=== PATIENT | female | born 1985 | race Two or more races ===

== ENCOUNTER 2024-09-14 15:12 | Outpatient (REF) | payer OTHER, SELFPAY ==
--- NOTE | ~2024-09-14 | US_ITS ---
EXAMINATION: US TRIPLEX LOWER EXTREMITY, LEFT CLINICAL INFORMATION: Edema and pain COMPARISON: None available. TECHNIQUE: Color-flow triplex imaging with spectral analysis and compression Doppler were performed on the left lower extremity. FINDINGS: Respiratory variation, normal compression and augmented flow are noted throughout the left lower extremity. The visualized common femoral vein, superficial femoral vein, profunda femoral vein, popliteal vein and midcalf peroneal and posterior tibial venous segments show no evidence of deep venous thrombosis. Incidental finding of a left groin lymph node measuring 1.9 cm normal echogenic medullary. There is no Sheridan's cyst. Imaging over the left anterior thyroid patient complains of pain reveals no focal mass, lesion or fluid collection. US/US venous duplex LE IMPRESSION: No evidence of deep venous thrombosis involving the left lower extremity. Electronically signed by: Good Lujan MD 09/14/2024 04:34 PM PORTER
--- NOTE | ~2024-09-14 | US_ITS ---
EXAMINATION: US TRIPLEX UPPER EXTREMITY, LEFT CLINICAL INFORMATION: Pain and swelling COMPARISON: None available. TECHNIQUE: Color-flow triplex imaging with spectral analysis and compression Doppler was performed on the left upper extremity. FINDINGS: The left internal jugular, subclavian, and axillary veins are patent and free of thrombus. The imaged segment of the left brachiocephalic vein is patent. Spectral doppler waveforms are normal. The brachial, basilic, cephalic, radial, and ulnar veins are patent and compressible. US/US venous duplex UE LT IMPRESSION: No evidence of deep venous thrombosis involving the left upper extremity. Electronically signed by: Good Lujan MD 09/14/2024 04:34 PM EST
--- OUTSIDE RECORDS SUMMARY | 2024-09-14 18:46 | XMS_ITS ---
Author Organization [facility] Address [address] [place] [address] Care Team Providers Care Ore Mixer Name Role Phone STEFANIE NAZARIO M.D. Primary Care Provider Unavail able Aniyah Loo Unavailable [phone] Allergies Allergen (clinical drug ingredient) Drug/Non Drug Allergy documented on EMR Reaction Allergy Type Onset Date Status CECLOR Skin Rash Drug Allergy Active amoxicillin / clavulanate AUGMENTIN Skin Rash Drug Allergy Active Adhesive Skin Rash Allergy Active Substance with sulfonamide structure and antibacterial mechanism of action (substance) Sulfa Antibiotics Skin Rash Drug Allergy Active Results Component Value Reference Range Notes Urinalysis Reviewed date:10/01/2023 12:34:55 PM Interpretation: Performing Lab: Notes/Report: PH 5.0 PROTEIN Small GLUCOSE Neg BLOOD Neg 200725-Ebc IGP, CtNg Culture 30 Plus Reviewed date:10/07/2023 12:38:54 PM Interpretation: Performing Lab:[facility], [address], Phone - [phone], Director - [facility] Notes/Report: Clinical Information:SRC: CERVICAL Vaginal/Cervical, LMP: Non e with IUD Source.............Cervix Dates / Results....07/23/22 NIL, + HPV Other..............IUD No. of containers..01 ThinPrep Vial DIAGNOSIS: NEGATIVE FOR INTRAEPITHELIAL LESION OR MALIGNANCY. THIS SPECIMEN WAS RESCREENED PART OF OUR FLYING INSTRUCTOR PROGRAM. THE CYTOLOGY PROCESSING [facility]FOR[facility] AT [facility] LOC[facility] [place] [address] [place] [phone]. Specimen adequacy: Satisfactory for evaluation. Endocervical and/or squamous metaplastic cells (endocervical component) are present. Clinician provided ICD10: Z01.419 Z72.51 Performed by: Christal danielson, Fabrication Manager (ASC) QC reviewed by: Aruna danielson, Fabrication Manager (ASC) . . Note: The Pap smear is a screening test designed to aid in the detection of premalignant and malignant conditions of the uterine cervix. It is not a diagnostic procedure and should not be used as the sole means of detecting cervical cancer. Both false-positive and false-negative reports do occur. . Test Methodology: This liquid based ThinPrep(R) pap test was screened with the use of an image guided system. HPV Aptima Negative Negative This nucleic acid amplification test detects fourteen high-risk HPV types (16,18,31,33,35,39,45,51,52,56,58 ,59,66,68) without differentiation. HPV Genotype Reflex Criteria not met, HPV Genotype not performed. Chlamydia, Nuc. Acid Amp Negative Negative Gonococcus, Nuc. Acid Amp Negative Negative PDF Report Reviewed date:10/07/2023 12:39:06 PM Interpretation: Performing Lab:[facility], [address], Phone - [phone], Director - [facility] Notes/Report: Clinical Information:SRC: CERVICAL Vaginal/Cervical, LMP: Non e with IUD Source.............Cervix Dates / Results....07/23/22 NIL, + HPV Other..............IUD No. of containers..01 ThinPrep Vial REASON FOR VISIT Annual PLANT PATHOLOGY TEACHER Physical, Annual PLANT PATHOLOGY TEACHER Physical -* Medications Medication SIG (Take, Route, Frequency, Duration) Notes Start Date End Date Status Multi-Vitamin - 1 tablet Orally Once a day for 30 day(s) Active Calcium-D Active DULoxetine HCl 60 MG TK 1 C PO ONCE D IN ADDITION TO 30MG CAPSULE Oral for 30 Active Omeprazole 20 MG TK 2 CS PO BID Oral for 30 Active Magnesium 200 MG 2 tablets with a mike l Orally Once a day for 30 day(s) Active hydrOXYzine HCl 50 MG 1 tablet at bedtim e as needed Orally Once a day for 30 day(s) unknown dose Active Prazosin HCl 2 MG 1 capsule at bedtime Orally Once a day for 30 day(s) Active traZODone HCl 100 MG 1 tablet at bedtime Orally Once a day for 30 day(s) Active Collagen Ultra - as directed Orally Active Probiotic - as directed Orally Active Mirena (52 MG) 20 MCG/DAY I implant Intrauterine Once every 5 years for 999 days 1,825 days for Mirena but our system will omly allow up to 999 days. Please mail the IUD to [facility], [address], [place] [address]. Do not mail to patient. 07/30/2022 Active Hair Skin and Nails Formula - as directed Orally Active Aldara 5 % 1 application to affected area at bedtime Externally APPLY TO AFFECTED AREA THRICE A WEEK, NOT TO EXCEED 16 WEEKS for 30 days 10/01/2023 Active Social History Tobacco Use: Social History Observation Description Date Details (start date - stop date) Current Smoker NA - NA Tobacco Use/Smoking Question Answer Notes Are you a current smoker How often do you smoke cigarettes? every day How many cigarettes a day do you smoke? 5 or les s Alcohol Screen (Audit-C) Question Answer Notes Did you have a drink contain ing alcohol in the past year? Yes How often did you have a dri nk containing alcohol in the past year? 2 to 4 times a month (2 points) How many drinks did you have on a typical day when you were drinking in the past year? 1 or 2 drinks (0 point) Points 2 Interpretation Negative Sexual History Question Answer Notes Had sex in the past 12 months (vaginal, oral, or anal)? Yes with Men only Problems Problem Type SNOMED Code ICD Code Onset Dates Problem Status W/U Status Risk Notes Problem Anogenital warts (014976285) Anogenital (venereal) warts (A63.0) Active confirmed Vital Signs Temperature 97.7 degrees Fahrenheit 10/01/19 24 Blood pressure systolic 110 mm Hg 10/01/19 24 Blood pressure diastolic 70 mm Hg 024 Height 68 in 10/01/2023 Weight 167 lbs 10/01/2023 BMI 25.39 kg/m2 10/01/2023 Encounters Encounter Location Date Provider Diagnosis [place] [address] [address] [facility] [address] [place] [address] 10/01/2023 Aniyah Loo Encounter for gynecological examination (general) (routine) without abnormal findings Z01.419 ; High risk heterosexual behavior Z72.51 ; Encounter for routine checking of intrauterine contraceptive device Z30.431 ; Anogenital (venereal) warts A63.0 ; Personal history of other diseases of the female genital tract Z87.42 and Cervical high risk human papillomavirus (HPV) DNA test positive R87.810 Assessments Encounter Date Diagnosis (ICD Code) Assessment Notes Treatment Notes Treatment Clinical Notes Section Notes 10/01/2023 Encounter for gynecological examination (general) (routine) without abnormal findings (ICD-10 - Z01.419) PAP TEST WITH HPV TYPING WAS OBTAINED. 10/01/2023 High risk heterosexual behavior (ICD-10 - Z72.51) GC & CHLAMYDIA TESTS WITH PAP SMEAR. 10/01/2023 Encounter for routine checking of intrauterine contraceptive device (ICD-10 - Z30.431) PAT WAS REASSURED THAT IUD IS IN PLACE. THIS WILL NEED TO BE REPLACED IN 2029. 10/01/2023 Anogenital (venereal) warts (ICD-10 - A63.0) DISCUSSED FINDINGS, DX AND TX OPTIONS. SHOWED PAT WARTS USING A HAND MIRROR. SHE REFUSED TCA TREATMENTS. WILL TRY ALDARA. DETAILED INSTRUCTIONS WERE GIVEN. CALL IF NOT EFFECTIVE. 10/01/2023 Personal history of other diseases of the female genital tract (ICD-10 - Z87.42) DISCUSSED PREVIOUS HX OF ABNORMAL PAP TESTS. REPEAT PAP TEST WITH HPV TYPING WAS OBTAINED TODAY. IF ABNORMAL, WILL PROCEED WITH COLPOSCOPY. 10/01/2023 Cervical high risk human papillomavirus (HPV) DNA test positive (ICD-10 - R87.810) DISCUSSED HIGH RISK HPV AND ITS SIGNIFICANCE. PAP TEST WITH HPV TYPING WAS OBTAINED. Plan Of Treatment Medication Medication Name Sig Start Date Stop Date Notes Aldara 5 % 1 application to aff ected area at bedtime Externally APPLY TO AFFECTED AREA THRICE A WEEK, NOT TO EXCEED 16 WEEKS for 30 days 10/01/2023 Treatment Notes Assessment Notes Encounter for gynecological examination (general) (routine) without abnormal findings PAP TEST WITH HPV TYPING WAS OBTAINED. High risk heterosexual behavior GC & CHL AMYDIA TESTS WITH PAP SMEAR. Encounter for routine checki ng of intrauterine contraceptive device PAT WAS REASSURED THAT IUD IS IN PLACE. THIS WILL NEED TO BE REPLACED IN 2030. Anogenital (venereal) warts DISCUSSED FINDINGS, DX AND TX OPTIONS. SHOWED PAT WARTS USING A HAND MIRROR. SHE REFUSED TCA TREATMENTS. WILL TRY ALDARA. DETAILED INSTRUCTIONS WERE GIVEN. CALL IF NOT EFFECTIVE. Personal history of other di seases of the female genital tract DISCUSSED PREVIOUS HX OF ABNORMAL PAP TESTS. REPEAT PAP TEST WITH HPV TYPING WAS OBTAINED TODAY. IF ABNORMAL, WILL PROCEED WITH COLPOSCOPY. Cervical high risk human pap illomavirus (HPV) DNA test positive DISCUSSED HIGH RISK HPV AND ITS SIGNIFICANCE. PAP TEST WITH HPV TYPING WAS OBTAINED. Next Appt Details Follow Up: 1 Year, Reason: Provider Name:Aniyah steinberg, 10/04/2024 10:20:00 AM, [address], [address], [place], [address], Progress Notes * NICCI TRANDOB:1985 (37 yo F)Acc No.[id number]:10/01/2023 PROGRESS NOTES Patient:?TRANNICCI Appointment Provider:?Aniyah steinberg M.D. :1985???Age:37 Y???Sex:Female D ate:10/01/2023 Address:[address] [place] [address] Pcp:STEFANIE NAZARIO M.D. Subjective: * Chief Complaints: * ???Annual PLANT PATHOLOGY TEACHER PhysicalAnnual PLANT PATHOLOGY TEACHER Physical 30-39* * HPI: ???New/Follow-up Patient Consult:? FOURTH MIRENA IUD WAS INSERTED ON 08/06/22. SHE IS HAPPY WITH THE IUD. ?S/P GASTRIC BYPASS SURGERY WHEN SHE WAS 22 YEARS OLD. SHE LOST A SIGNIFICANT AMOUNT OF WEIGHT AND HAS KEPT THIS OFF. SHE HAS UNDERGONE ABDOMINOPLASTY AND REMOVAL OF EXCESS SKIN ALONG BOTH UPPER EXTREMITIES. SHE HAS SUFFERED PERFORATION OF STOMACH TWICE, 7 AND 5 YEARS AGO. SHE CONTINUES TO BE FOLLOWED BY HER SURGEON. ?SHE HAS NOTED WARTS ALONG THE VULVA OF SEVERAL MONTHS DURATION. SHE WANTS THESE EXCISED. ?SHE HAS BEEN WITH A NEW PARTNER FOR A FEW YEARS. HE HAS NOT REPORTED NOTING ANY WARTS. ?HER PAP TEST IN 2013 SHOWED ASC-H. COLPOSCOPY WAS NEGATIVE. PAP TEST IN 2016 SHOWED ASCUS, +HPV AND COLPOSCOPY WAS AGAIN NEGATIVE. HER LAST PAP TEST IN 2022 WAS NEGATIVE BUT HR HPV POSITIVE (NEG16,18/45). WE WILL REPEAT HER PAP TEST TODAY. ???Annual:? Patient presents for annual exam ages 30-39. ?Menstrual History:?Regularity of Cycles:?regular ?Currently using control:?__ ?Satisfaction/Dissatisfaction of current method of control:?__ ?General Health Maintenance:?Current breast complaints:?no breast pain, mass, discharge, or skin changes ?Urinary problems:?patient reports no urinary health problems or bowel health problems ?Calcium intake:?takes adequate calcium via 3-4 servings of dairy daily ?Significant PLANT PATHOLOGY TEACHER problems:?no significant obstetrician and gynaecologist symptoms or problems * ROS:?general:?no?chest pain.?no?palpitations.?no?headache.?no?cough.?no?shortness of breath.?no?fever.?no?unexplained weight loss.?no?nausea/vomiting.?no?change in bowel movements.?no blood in stool.?no?genitourinary complaints.?no?skin complaints.? * Medical History:? 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 * OB History:?Total pregnancies?3.?Total living children?2.?NVD?2.?(s)?1.? * Surgical History:?Colposcopy Gastric Bypass Hemorrhoidectomy Back Surgery, Sonny Placed For Lumbar Fusion Stomach Surgery - Perforated Hole in Stomach 01/2018 * Hospitalization/Major Diagno stic Procedure:?2 Vaginal Deliveries See Surgical Hx * Family History:?Mother: aliv e, well.?Father: alive, well.? Sibling(s): 2 brother(s) 2 sister(s) Alive & Well. 2 brothers ADHD. * Social History:?Tobacco Use:?Tobacco Use/Smoking?Are you a?current smoker ?How often do you smoke cigarettes??every day ?How many cigarettes a day do you smoke??5 or less ???Sexual History:?Sexual History?Had sex in the past 12 months (vaginal, oral, or anal)??Yes ?with?Men only ?Details of Sexual History?Are you sexually active??Yes ???Drugs/Alcohol:?Drugs?Have you used drugs other than those for medical reasons in the past 12 months??No ?Alcohol Screen (Audit-C)?Did you have a drink containing alcohol in the past year??Yes ?How often did you have a drink containing alcohol in the past year??2 to 4 times a month (2 points) ?How many drinks did you have on a typical day when you were drinking in the past year??1 or 2 drinks (0 point) ?Points?2 ?Interpretation?Negative ???Miscellaneous:?Children: yes, 2. ?no Domestic violence. ?Exercise: yes, Cardio. ?Home smoke detector use: yes. ?Living with: significant other. ?Marital status: single. ?Natural support system: yes. 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 ?Sexually active: yes. * Medications:?TakingProbiotic - Tablet Delayed Release as directed Orally Collagen Ultra - Capsule as directed Orally Prazosin HCl 2 MG Capsule 1 capsule at bedtime Orally Once a dayhydrOXYzine HCl 50 MG Tablet 1 tablet at bedtime as needed Orally Once a day, Notes: unknown dosetraZODone HCl 100 MG Tablet 1 tablet at bedtime Orally Once a dayMagnesium 200 MG Tablet 2 tablets with a meal Orally Once a dayCalcium-D Multi-Vitamin - Tablet 1 tablet Orally Once a dayOmeprazole 20 MG Capsule Delayed Release TK 2 CS PO BID Oral DULoxetine HCl 60 MG Capsule Delayed Release Particles TK 1 C PO ONCE D IN ADDITION TO 30MG CAPSULE Oral Hair Skin and Nails Formula - Tablet as directed Orally Mirena (52 MG) 20 MCG/DAY Intrauterine Device I implant Intrauterine Once every 5 years, Notes: 1,825 days for Mirena but our system will omly allow up to 999 days. Please mail the IUD to [facility], [address] [place] [phone]. Do not mail to patient.Medication List reviewed and reconciled with the patientTaking Probiotic - Tablet Delayed Release as directed Orally Taking Collagen Ultra - Capsule as directed Orally Taking Prazosin HCl 2 MG Capsule 1 capsule at bedtime Orally Once a dayTaking hydrOXYzine HCl 50 MG Tablet 1 tablet at bedtime as needed Orally Once a day, Notes: unknown doseTaking traZODone HCl 100 MG Tablet 1 tablet at bedtime Orally Once a dayTaking Magnesium 200 MG Tablet 2 tablets with a meal Orally Once a dayTaking Calcium-D Taking Multi-Vitamin - Tablet 1 tablet Orally Once a dayTaking Omeprazole 20 MG Capsule Delayed Release TK 2 CS PO BID Oral Taking DULoxetine HCl 60 MG Capsule Delayed Release Particles TK 1 C PO ONCE D IN ADDITION TO 30MG CAPSULE Oral Taking Hair Skin and Nails Formula - Tablet as directed Orally Taking Mirena (52 MG) 20 MCG/DAY Intrauterine Device I implant Intrauterine Once every 5 years, Notes: 1,825 days for Mirena but our system will omly allow up to 999 days. Please mail the IUD to [facility], [address], [place] [address]. Do not mail to patient.Medication List reviewed and reconciled with the patient * Allergies:?CECLOR: Skin Rash - AllergyAUGMENTIN: Skin Rash - AllergySulfa Antibiotics: Skin Rash - AllergyAdhesive: Skin Rash - Allergyno[Allergies Verified] Objective: * Vitals:?Ht: 68 in, Wt:167 lb s, BMI:25.39 Index, BP:110/70 mm Hg, Temp:97.7 F. * Examination: ???General Exam: ?CONSTITUTIONAL:?General Appearance:?alert, in no acute distress, normal, well nourished ?NECK/THYROID:?Inspection/Palpation:?normal ?Thyroid:?normal size and shape ?RESPIRATORY:?Auscultation: clear to auscultation bilaterally, Respiratory Effort: normal.?CARDIOVASCULAR:?Auscultation: regular rate and rhythm.?BREAST, Right:?Inspection/Palpation:?no discharge, no masses present, no nipple retraction, no skin changes, no skin dimpling, no tenderness, no lymphadenopathy, no axillary mass, no axillary tenderness ?BREAST, Left:?Inspection/Palpation:?no discharge, no masses present, no nipple retraction, no skin changes, no skin dimpling, no tenderness, no lymphadenopathy, no axillary mass, no axillary tenderness ?GASTROINTESTINAL:?Abdomen:?no masses, nontender, nondistended ?Liver and Spleen:?normal ?Hernias:?no hernias present, no inguinal adenopathy ?MUSCULOSKELETAL:?Inspection/Palpation:?no clubbing, cyanosis, or edema ?SKIN:?Skin:?normal ?NEURO/PSYCH:?Orientation:?time , place, person ?Mood/Affect:?normal?Genitourinary: ?EXTERNAL GENITALIA:?External Genitalia:?WARTS ARE NOTED ALONG THE VULVA ?VAGINA:?Vagina:?normal appearance, no abnormal discharge, no lesions ?BLADDER:?Bladder:?no mass, nontender ?URETHRA:?Urethra:?no erythema or lesions present ?CERVIX:?Cervix:?no lesions, nontender ?UTERUS:?Uterus:?nontender, normal contour, normal mobility, normal size ?ADNEXA:?Adnexa:?no masses, no tenderness ?ANUS AND PERINEUM:?Anus/Perineum:?visually normal??? Assessment: * Assessment: 1.?Encounter for gynecologic al examination (general) (routine) without abnormal findings - Z01.419?2.?High risk heterosexual behavior - Z72.51?3.?Encounter for routine checking of intrauterine contraceptive device - Z30.431?4.?Anogenital (venereal) warts - A63.0?5.?Personal history of other diseases of the female genital tract - Z87.42?6.?Cervical high risk human papillomavirus (HPV) DNA test positive - R87.810? Plan: * Treatment: ? Value Reference Range ?PH 5.0 * ?PROTEIN Small * ?GLUCOSE Neg * ?BLOOD Neg * D.MILLI 10/01/2023 11:01:09 AM > Notes: PAP TEST WITH HPV TYPING WAS OBTAINED.??2.?High risk heterosexual behavior? Notes: GC & CHLAMYDIA TESTS WITH PAP SMEAR.??3.?Encounter for routine checking of intrauterine contraceptive device? Notes: PAT WAS REASSURED THAT IUD IS IN PLACE. THIS WILL NEED TO BE REPLACED IN 2029.??4.?Anogenital (venereal) warts? Start Aldara Cream, 5 %, 1 application to affected area at bedtime, Externally, APPLY TO AFFECTED AREA THRICE A WEEK, NOT TO EXCEED 16 WEEKS, 30 days, 12 Packet, Refills 3.?? Notes: DISCUSSED FINDINGS, DX AND TX OPTIONS. SHOWED FLORENTIN WARTS USING A HAND MIRROR. SHE REFUSED TCA TREATMENTS. WILL TRY ALDARA. DETAILED INSTRUCTIONS WERE GIVEN. CALL IF NOT EFFECTIVE.??5.?Personal history of other diseases of the female genital tract? Notes: DISCUSSED PREVIOUS HX OF ABNORMAL PAP TESTS. REPEAT PAP TEST WITH HPV TYPING WAS OBTAINED TODAY. IF ABNORMAL, WILL PROCEED WITH COLPOSCOPY.??6.?Cervical high risk human papillomavirus (HPV) DNA test positive? Notes: DISCUSSED HIGH RISK HPV AND ITS SIGNIFICANCE. PAP TEST WITH HPV TYPING WAS OBTAINED.?? * Procedure Codes:? * Preventive Medicine:? ??YOUR PREVENTIVE WELLNESS PLAN:?Osteoporosis prevention?Calcium, D, strength training.?Cervical Cancer Screening (Pap Smear):?q 3 years with HPV screen.? ??Counseling:?Breast awareness?.?Breast self exam after periods:?.?Diet/Vitamins discussed including high doses of Vitamins A, C, E and Zinc:?.?Exercise:?.?Seatbelts:?.?Sunscreen:?.?Patient was counseled regarding the above. * Follow Up:?1 Year * Images: Billing Information: * Visit Code:? * Procedure Codes:? * Sign off status: Completed true * Appointment Provider:?Aniyah Loo M.D. Date:?10/01/2023 Generated for Ganga dorman/Blaire/Carmenitting on:?09/14/2024 06:46 PM EST History and Physical Notes * HPI (History of Present Illness) Category Sub-Category Detail Notes Category Not es New/Follow-up Patient Consult FOURTH MIRENA IUD WAS INSERTED ON 08/06/22. SHE IS HAPPY WITH THE IUD. S/P GASTRIC BYPASS SURGERY WHEN SHE WAS 22 YEARS OLD. SHE LOST A SIGNIFICANT AMOUNT OF WEIGHT AND HAS KEPT THIS OFF. SHE HAS UNDERGONE ABDOMINOPLASTY AND REMOVAL OF EXCESS SKIN ALONG BOTH UPPER EXTREMITIES. SHE HAS SUFFERED PERFORATION OF STOMACH TWICE, 7 AND 5 YEARS AGO. SHE CONTINUES TO BE FOLLOWED BY HER SURGEON. SHE HAS NOTED WARTS ALONG THE VULVA OF SEVERAL MONTHS DURATION. SHE WANTS THESE EXCISED. SHE HAS BEEN WITH A NEW PARTNER FOR A FEW YEARS. HE HAS NOT REPORTED NOTING ANY WARTS. HER PAP TEST IN 2013 SHOWED ASC-H. COLPOSCOPY WAS NEGATIVE. PAP TEST IN 2016 SHOWED ASCUS, +HPV AND COLPOSCOPY WAS AGAIN NEGATIVE. HER LAST PAP TEST IN 2022 WAS NEGATIVE BUT HR HPV POSITIVE (NEG16,18/45). WE WILL REPEAT HER PAP TEST TODAY. Annual Menstrual History: Regularity of Cycles:: regular Currently using control:: __ Satisfaction/Dissatisfaction of current method of control:: __ General Health Maintenance: Current epifanio st complaints:: no breast pain, mass, discharge, or skin changes Urinary problems:: patient r eports no urinary health problems or bowel health problems Calcium intake:: takes adequ ate calcium via 3-4 servings of dairy daily Significant PLANT PATHOLOGY TEACHER problems:: n o significant obstetrician and gynaecologist symptoms or problems Examination Category Sub-Category Detail Notes Category Not es General Exam CONSTITUTIONAL: General Appearan ce:: alert, in no acute distress, normal, well nourished NECK/THYROID: Thyroid:: normal size and shape Inspection/Palpation:: normal RESPIRATORY: Auscultation: clear to auscultation bilaterally, Respiratory Effort: normal CARDIOVASCULAR: Auscultation: regula r rate and rhythm GASTROINTESTINAL: Hernias:: no hernias present, no inguinal adenopathy Liver and Spleen:: normal Abdomen:: no masses, nontender, nondiste nded MUSCULOSKELETAL: Inspection/Palpation:: no clubb ing, cyanosis, or edema SKIN: Skin:: normal NEURO/PSYCH: Mood/Affect:: normal Orientation:: time , place, person BREAST, Right: Inspection/Palpation :: no discharge, no masses present, no nipple retraction, no skin changes, no skin dimpling, no tenderness, no lymphadenopathy, no axillary mass, no axillary tenderness BREAST, Left: Inspection/Palpation :: no discharge, no masses present, no nipple retraction, no skin changes, no skin dimpling, no tenderness, no lymphadenopathy, no axillary mass, no axillary tenderness Genitourinary EXTERNAL GENITALIA: External Genitalia:: WARTS ARE NOTED ALONG THE VULVA VAGINA: Vagina:: normal appearance, no a bnormal discharge, no lesions BLADDER: Bladder:: no mass, nontender URETHRA: Urethra:: no erythema or lesions present CERVIX: Cervix:: no lesions, nontender UTERUS: Uterus:: nontender, normal conto ur, normal mobility, normal size ADNEXA: Adnexa:: no masses, no tendernes s ANUS AND PERINEUM: Anus/Perineum:: visually norm al
--- OUTSIDE RECORDS SUMMARY | 2024-09-14 18:46 | XMS_ITS ---
Author Organization [facility] ([email or web address]) [facility] Address [address] [place] [id number] Care Team Providers Care Memory Care Director Name Role Phone MANSI Mayers, STEFANIE Primary Care Provider Aniyah Tenorio Unavailable [phone] Allergies Allergen (clinical drug ingredient) Drug/Non Drug Allergy documented on EMR Reaction Allergy Type Onset Date Status CECLOR Skin Rash Drug Allergy Active amoxicillin / clavulanate AUGMENTIN Skin Rash Drug Allergy Active Adhesive Skin Rash Allergy Active Substance with sulfonamide structure and antibacterial mechanism of action (substance) Sulfa Antibiotics Skin Rash Drug Allergy Active REASON FOR VISIT 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 [address] [address] 07/26/2023 Aniyah Loo Plan Of Treatment Next Appt Details Provider Name:Aniyah steinberg, 10/04/2024 10:20:00 AM, [address] [place] [address], [place], [address], Progress Notes * NICCI TRANDOB:1985 (38 yo F)Acc No.[id number]:07/26/2023 PROGRESS NOTES Patient:?NICCI TRAN Appointment Provider:?Aniyah steinberg M.D. :1985???Age:37 Y???Sex:Female D ate:07/26/2023 Address:[address] [place], [place] [id number] Pcp:STEFANIE NAZARIO M.D. Subjective: * Chief Complaints: * ???1. 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 * Medical History:?Gastro-esop hageal reflux disease without esophagitis, Major depressive disorder, single episode, unspecified, Other herpesviral infection, Cervical high risk human papillomavirus (HPV) DNA test positive, Atypical squamous cells of undetermined significance on cytologic smear of cervix (ASC-US), Irregular menstruation, unspecified. 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 * OB History:?Total pregnancies?3.?Total living children?2.?NVD?2.?(s)?1.? * Allergies:?CECLOR: Skin Rash - Allergy, AUGMENTIN: Skin Rash - Allergy, Sulfa Antibiotics: Skin Rash - Allergy, Adhesive: Skin Rash - Allergy. Objective: * Vitals:? Assessment: Plan: * Treatment: * Images: Billing Information: * Visit Code:? * Procedure Codes:? * Electronic signature of Chai Loo MD on 09/14/2024 at 06:46 PM EST Sign off status: Pending * Appointment Provider:?Aniyah Loo M.D. Date:?07/26/2023 Generated for Ganga dorman/Blaire/eTallysmitting on:?09/14/2024 06:46 PM EST
--- OUTSIDE RECORDS SUMMARY | 2024-09-14 18:47 | XMS_ITS | Patient Health Record ---
Author Organization [facility] Address [address] [facility] [address] [place] [address] Care Team Providers Care Program Support Assistant Name Role Phone STEFANIE NAZARIO M.D. Primary Care Provider Unavail able Aniyah Loo Unavailable [phone] Allergies Allergen (clinical drug ingredient) Drug/Non Drug [...] 5.0 PROTEIN Small GLUCOSE Neg BLOOD Neg [id number] IGP, CtNg Culture 30 Plus Reviewed date:10/07/2023 12:38:54 PM Interpretation: Performing Lab[facility], [address] [place] [address], Phone - [phone], Director - [facility] Notes/Report: Clinical Information:SRC: CERVICAL Vaginal/Cervical, LMP: Non e with IUD Source.............Cervix Dates / Results....07/23/22 NIL, + HPV Other..............IUD No. of containers..01 ThinPrep Vial DIAGNOSIS: NEGATIVE FOR INTRAEPITHELIAL LESION OR MALIGNANCY. THIS SPECIMEN WAS RESCREENED PART OF OUR CARPENTER MAINTENANCE PROGRAM. THE CYTOLOGY PROCESSING [facility] LOC[facility] AT [address] [place] [phone]. Specimen adequacy: Satisfactory for evaluation. Endocervical and/or squamous metaplastic cells (endocervical component) are present. Clinician provided ICD10: Z01.419 Z72.51 Performed by: Christal danielson, Stove Mechanic (ASCP) QC reviewed by: Aruna danielson, Stove Mechanic (ASC) . . Note: The Pap smear [...] Reviewed date:10/07/2023 12:39:06 PM Interpretation: Performing Lab:[facility], [address], Phone - [phone], Director - [facility] Notes/Report: Clinical Information:SRC: CERVICAL Vaginal/Cervical, LMP: Non e with IUD Source.............Cervix Dates / Results....07/23/22 NIL, + HPV Other..............IUD No. of containers..01 ThinPrep Vial Reason For Referral No Information Medications Medication SIG (Take, Route, Frequency, Duration) Notes Start Date End Date Status Mirena (52 MG) 20 MCG/DAY I implant Intrauterine Once every 5 years for 999 days 1,825 days for Mirena but our system will omly allow up to 999 days. Please mail the IUD to [facility], [address] [place] [address], [place] [address]. Do not mail to patient. 07/30/2022 Active Hair Skin and Nails Formula - as directed Orally Active Multi-Vitamin - 1 tablet Orally Once a day for 30 day(s) Active Calcium-D Active DULoxetine HCl 60 MG TK 1 C PO ONCE D IN ADDITION TO 30MG CAPSULE Oral for 30 Active Omeprazole 20 MG TK 2 CS PO BID Oral for 30 Active hydrOXYzine HCl 50 MG 1 tablet at bedtim e as needed Orally Once a day for 30 day(s) unknown dose Active Prazosin HCl 2 MG 1 capsule at bedtime Orally Once a day for 30 day(s) Active Aldara 5 % 1 application to affected area at bedtime Externally APPLY TO AFFECTED AREA THRICE A WEEK, NOT TO EXCEED 16 WEEKS for 30 days 10/01/2023 Active Magnesium 200 MG 2 tablets with a mike l Orally Once a day for 30 day(s) Active traZODone HCl 100 MG 1 tablet at bedtime Orally Once a day for 30 day(s) Active Collagen Ultra - as directed Orally Active Probiotic - as directed Orally Active Social History Tobacco Use: Social History [...] oral, or anal)? Yes with Men only Section Notes: Quit Smoking 01/2018 Problems Problem Type SNOMED Code ICD Code Onset Dates Problem Status W/U Status Risk Notes Problem Human papilloma virus deoxyribonucleic acid test positive, high risk on vaginal specimen (296335705096461) Cervical high risk human papillomavirus (HPV) DNA test positive (R87.810) Active confirmed Problem Anogenital warts (188515360) Anogenital (venereal) warts (A63.0) Active confirmed Problem Irregular menstruation (71205200) Irregular menstruation, unspecified (N92.6) Active confirmed Problem Depressive disorder (31418618) Depressive disorder, not elsewhere classified (311) Active confirmed Major Problem Vulvovaginitis (disorder) (47200556) Unspecified vaginitis and vulvovaginitis (616.10) Active confirmed Diag Problem Esophageal reflux (858198614) Esophageal reflux (530.81) Active confirmed Major Problem Gynecological examination normal (251394327496463) Routine gynecological examination (V72.31) Active confirmed Diag Problem Insertion of intrauterine contraceptive device (07364658) Insertion of intrauterine contraceptive device (V25.1) Active confirmed Major Problem Surveillance of intrauterine device contraception done (567666921369049) Surveillance of previously prescribed intrauterine contraceptive device (V25.42) Active confirmed Other Vital Signs Temperature 97.7 degrees Fahrenheit 10/01/2023 Blood pressure diastolic 70 mm Hg 10/01/2023 Height 68 in 10/01/2023 Blood pressure systolic 110 mm Hg 10/01/2023 Weight 167 lbs 10/01/2023 BMI 25.39 kg/m2 10/01/2023 Encounters Encounter Location Date Provider Diagnosis [address] [place] [address] 10/01/2023 Aniyah Loo Encounter for gynecological examination [...] of intrauterine contraceptive device (ICD-10 - Z30.431) FLORENTIN WAS REASSURED THAT IUD IS IN PLACE. [...] HPV TYPING WAS OBTAINED. Plan Of Treatment Pending Test Test Name Order Date THIN PREP,HPV,BRONWYN IF HPV+ (>29YR)(DIAG) 05/23/2018 THIN PREP,HPV,BRONWYN IF HPV+/CYT-,CT/GC(>2 9YR)(DIAG) 05/23/2018 Next Appt Details Provider Name:Aniyah Whiteside maryan, 10/04/2024 10:20:00 AM, [address] [facility], [address], [place], [address], Insurance Providers Payer Name Payer Address Payer Phone Subscriber Number Group Number Insured Name Patient Relationship to Insured Coverage Start Date Coverage End Date [facility] [address] [address] [place] [id number] NICCI TRAN Self - patient is the insured Medical (General) History Medical History History ICD Code Gastro-esophageal reflux disease without esophagitis K21.9 Major depressive disorder, single episod e, unspecified F32.9 Other herpesviral infection B00.89 Cervical high risk human papillomavirus (HPV) DNA test positive R87.810 Atypical squamous cells of u ndetermined significance on cytologic smear of cervix (ASC-US) R87.610 Irregular menstruation, unspecified N92. 6 Surgical History Surgery Date(Month/Year) Colposcopy Gastric Bypass Hemorrhoidectomy Back Surgery, Sonny Placed For Lumbar Fusi on Stomach Surgery - Perforated Hole in Sto mach 01/2018 Hospitalization History Reason Date(Month/Year) See Surgical Hx 2 Vaginal Deliveries
== END 2024-09-14 15:13 | disposition home or self-care (01) ==
LOC: HO.US 15:12
PROVIDERS: PCP Internal Medicine; Visit Provider Internal Medicine
DX: M79.605 Pain in left leg (principal); R60.0 Localized edema
CPT/HCPCS: 93971

== ENCOUNTER → 2024-09-14 15:21 | Outpatient (BNV) | payer OTHER, SELFPAY | PROVIDERS: PCP Internal Medicine; Visit Provider Radiology Diagnostic Radiology | DX: M79.602 Pain in left arm (principal); M79.605 Pain in left leg | CPT/HCPCS: 93971 ==